=== PATIENT | female | born 1930 | race Caucasian/White ===

== ENCOUNTER 2018-06-17 15:36 | Outpatient (CLI) | payer MEDICARE ==
--- NOTE | 2018-06-17 16:27 | RAD ---
CHEST TWO VIEWS: HISTORY: Cough. Fever. COMPARISON: 02/26/2017 FINDINGS: The cardiac silhouette and pulmonary vasculature are unremarkable. The lungs remain hyperinflated. The mediastinum is midline. No confluent air space consolidation, pneumothorax, or pleural fluid is evident. IMPRESSION: No active cardiopulmonary abnormalities demonstrated. POS: [facility]
== END 2018-06-17 15:37 | disposition home or self-care (01) ==
LOC: BICRAD 15:36
PROVIDERS: ATTEND Internal Medicine
DX: R05 Cough (principal); R50.9 Fever, unspecified; J06.9 Acute upper respiratory infection, unspecified; R53.83 Other fatigue
CPT/HCPCS: 71046; 87804

== ENCOUNTER 2018-10-29 13:13 | Outpatient (CLI) | payer MEDICARE ==
--- NOTE | 2018-10-29 14:19 | MMO ---
Bilateral MAMMO Bilat Screen [facility]. CLINICAL HISTORY: Patient is 88 years old and is seen for screening. The patient has the following family history of breast cancer: sister, at age 73 and mother, at age 70. The patient has no personal history of cancer. VIEWS: The views performed were: bilateral craniocaudal with tomosynthesis and bilateral mediolateral oblique with tomosynthesis. FILMS COMPARED: The present examination has been compared to prior imaging studies performed at [facility] on 05/10/2011, 06/15/2014, 06/20/2015 and 06/21/2016. MAMMOGRAM FINDINGS: There are scattered fibroglandular densities. There are no suspicious masses, suspicious calcifications, or new areas of architectural distortion. IMPRESSION: THERE IS NO MAMMOGRAPHIC EVIDENCE OF MALIGNANCY. A ROUTINE FOLLOW-UP MAMMOGRAM IN 1 YEAR IS RECOMMENDED. THE RESULTS OF THIS EXAM WERE SENT TO THE PATIENT. ACR BI-RADS Category 1 - Negative MAMMOGRAPHY NOTE: 1. A negative mammogram report should not delay a biopsy if a dominant of clinically suspicious mass is present. 2. Approximately 10% to 15% of breast cancers are not detected by mammography. 3. Adenosis and dense breasts may obscure an underlying neoplasm. Reported by: HELLEN GAFFNEY MD Electonically Signed: [id number]
--- NOTE | 2018-10-29 14:53 | BD ---
Exam: DEXA Bone Density 10/29/18 COMPARISON: None. HISTORY: 81-year-old postmenopausal female for screening. FINDINGS: Lumbar Spine: BMD (g/cm2) T-SCORE L1 0.686 -2.8 L2 0.750 -2.5 L3 0.750 -3.0 L4 0.949 -1.0 L1-L4 0.786 -2.4 Left Femoral Neck: 0.524 -2.9 Total proximal left Femur: 0.588 -2.9 Impression: Osteoporosis. POS: [facility]
== END 2018-10-29 13:14 | disposition home or self-care (01) ==
LOC: BICMAMMO 13:13
PROVIDERS: ATTEND Internal Medicine
DX: Z12.31 Encounter for screening mammogram for malignant neoplasm of breast (principal); M85.89 Other specified disorders of bone density and structure, multiple sites; M81.0 Age-related osteoporosis without current pathological fracture; Z80.3 Family history of malignant neoplasm of breast
CPT/HCPCS: 77063; 77067; 77080

== ENCOUNTER 2019-05-14 08:40 | Emergency (ER) | payer MEDICARE ==
[2019-05-14 09:15] LABS: #Eosinphils 0.1 thou/uL (0.0-0.7); #Lymphocytes 1.6 thou/uL (1.20-3.40); #Monocytes 0.7 thou/uL (0.11-0.59); #Neutrophils 4.1 thou/uL (1.40-6.50); %Basophils 0.6 % (0.0-1.0); %Lymphocytes 24.9 % (21.0-51.0); %Monocytes 11.2 % (0.0-10.0); %Neutrophils 62.4 % (42.0-75.0); Hemoglobin 13.1 g/dL (12.0-16.0); Mean Corpuscular HGB CONC 31.6 g/dL (32.0-36.0); Mean Corpuscular Hemoglobin 30.7 pg (27.0-31.0); Mean Platelet Volume 8.9 fL (7.4-10.4); Platelet Count 254 thou/uL (130-400); RBC Distribution Width 11.2 % (11.5-14.5); Red Blood Cell (RBC) Count 4.27 mill/uL (4.20-5.40); White Blood Cell (WBC) Count 6.6 thou/uL (4.8-10.8)
[2019-05-14 09:28] LABS: ALT (SGPT) 14 U/L (8-55); AST (SGOT) 16 U/L (5-34); Albumin 3.7 g/dL (3.4-4.8); Alkaline Phosphatase 71 U/L (40-110); Anion Gap 10 mmol/L (10-20); BUN (Urea Nitrogen) 22 mg/dL (9.8-20.1); Bilirubin, Total 0.9 mg/dL (0.2-1.2); Calc. Creatinine Clearance 0 mL/min (70-130); Calcium 9.7 mg/dL (7.8-10.44); Carbon Dioxide 28 mmol/L (23-31); Chloride 103 mmol/L (98-107); Estimated GFR-MDRD 47; Globulin 2.4 g/dL (2.4-3.5); Glucose 105 mg/dL (83-110); Potassium 4.2 mmol/L (3.5-5.1); Protein, Total 6.1 g/dL (6.0-8.3); Sodium 137 mmol/L (136-145)
--- NOTE | 2019-05-14 09:34 | CT ---
CT HEAD WITHOUT CONTRAST: Date: 05/14/2019 INDICATION: Fall with head injury. FINDINGS: Mild to moderate cortical volume loss. Mild to moderate chronic ischemic white matter change. No evid ence of intracranial hemorrhage. No evidence of mass, edema, or infarct. Calvarium appears intact. Paranasal sinuses show mucosal opacification in both maxillary sinuses. Vis ualized sphenoid, ethmoid, and frontal air cells are clear. Mastoid air cells are clear. IMPRESSION: No acute process identified. POS: [facility]
--- NOTE | 2019-05-14 09:35 | RAD ---
4 VIEWS LEFT KNEE: Date: 03/14/2020 COMPARISON: 11/06/10. HISTORY: Fall while walking, left knee pain. FINDINGS: 4 views of left knee show no evidence of acute fracture or dislocation. No significant degenerative c hanges are seen. No knee effusion is seen. The previously seen patella fracture has healed. IMPRESSION: No evidence of acute osseous abnormality. POS: [facility]
--- NOTE | 2019-05-14 09:36 | RAD ---
4 VIEWS RIGHT KNEE: DATE: 05/14/2019 HISTORY: Fall while walking, right knee pain. FINDINGS: 4 views of the right knee show a minimally displaced lucency through the patella likely representing a patellar fracture. There is a very small right knee effusion. No degenerative changes are seen. IMPRESSION: Mildly displaced right patellar fracture. POS: [facility]
--- NOTE | 2019-05-14 09:39 | RAD ---
Radiograph right hand 3 views: HISTORY: 88-year-old female with acute traumatic right hand pain after fall FINDINGS: There is diffuse severe osteopenia. No displaced fracture is identified. However, the severe osteopen ia could mask a nondisplaced fracture. Therefore, if symptoms do not improve in the next several days, follow-up radiograph of right hand is recommended in 5-10 days. No dislocation. Severe DJD at s econd DIP with focal angulation. Moderate to severe DJD at the third DIP. IMPRESSION: 1. No acute fracture identified. 2. 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 3. Severe osteoporosis.
--- NOTE | 2019-05-14 10:55 | RAD ---
RADIOGRAPH RIGHT WRIST 3 VIEWS: DATE: 05/14/2019 HISTORY: 88-year-old female with acute traumatic right wrist pain after fall. FINDINGS: No fracture is identified. However, if there is snuffbox tenderness following trauma that suggests an occult scaphoid fracture, then the general recommendation is immobilization and follow-up imaging in 5-10 days. There is severe diffuse osteopenia which could obscure a nondisplaced fracture. IMPRESSION: No fracture identified.
== END 2019-05-14 10:20 | disposition home or self-care (01) ==
LOC: ERS 08:40
DX: S82.001A Unspecified fracture of right patella, initial encounter for closed fracture (principal); S01.111A Laceration without foreign body of right eyelid and periocular area, initial encounter; S80.212A Abrasion, left knee, initial encounter; I10 Essential (primary) hypertension; Z79.899 Other long term (current) drug therapy; W18.30XA Fall on same level, unspecified, initial encounter; Y93.01 Activity, walking, marching and hiking
CPT/HCPCS: 70450; 80053; 84484; 85025; 93005